=== PATIENT | female | born 2000 | race Caucasian/White ===

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

== ENCOUNTER 2023-02-19 10:11 | Observation (INO) | payer BC ==
--- NOTE | 2023-02-19 11:50 | ED ---
Chest Pain HPI - General Chief Complaint: Chest Pain Stated Complaint: chest pain Time Seen by Provider: 02/19/23 11:50 Source: patient, family, RN notes reviewed Mode of arrival: ambulatory Limitations: no limitations - History of Present Illness Initial Comments: patient is a 22-year-old female presented ER with chief complaint of chest pressure. Patient denies any known cardiac history. Patient is current chest pressure in the center of her chest for the past day. She states it does come and go. Nothing makes it better or worse. Patient states she was sitting in a chair when pain first started. Patient denies any shortness of breath, fevers, chills. - Related Data Allergies Allergy/AdvReac Type Severity Reaction Status Date / Time No Known Allergies Allergy Verified 02/19/23 10:39 Review of Systems ROS Statement: Those systems with pertinent positive or pertinent negative responses have been documented in the HPI. ROS Other: All systems not noted in ROS Statement are negative. EKG Findings - EKG Comments: EKG Findings:: EKG taken at 10:51 shows a normal sinus rhythm with [address] depression noted in inferior leads. Ventricular rate 86, NV interval 135, QRS duration 81, QT/QTC 368/411. Repeat EKG taken at 14:52 shows normal sinus rhythm with [address] depression noted in inferior leads. Ventricular rate 69, NV interval 140, QRS duration 85, QT/QTC 394/414. Past Medical History Past Medical History: No Reported History History of Any Multi-Drug Resistant Organisms: None Reported Past Surgical History: Unable to Obtain Past Psychological History: No Psychological Hx Reported Smoking Status: Never smoker Past Alcohol Use History: Rare Past Drug Use History: None Reported General Exam Limitations: no limitations General appearance: alert, in no apparent distress Eye exam: Present: normal appearance, PERRL, EOMI. Absent: scleral icterus, conjunctival injection, periorbital swelling Respiratory exam: Present: normal lung sounds bilaterally. Absent: respiratory distress, wheezes, rales, rhonchi, stridor Cardiovascular Exam: Present: regular rate, normal rhythm, normal heart sounds. Absent: systolic murmur, diastolic murmur, rubs, gallop, clicks Neurological exam: Present: alert, oriented X3, CN II-XII intact Psychiatric exam: Present: normal affect, normal mood Skin exam: Present: warm, dry, intact, normal color. Absent: rash Course Vital Signs 02/19/23 02/19/23 10:36 15:16 Temperature 98.3 F 98.3 F Pulse Rate 89 63 Respiratory 20 20 Rate Blood Pressure 141/86 116/79 O2 Sat by Pulse 100 100 Oximetry Chest Pain MDM - MDM Was pt. sent in by a medical professional or institution (, PA, COMMERCIAL ADMINISTRATOR, urgent care, hospital, or jail...) When possible be specific @ -No Did you speak to anyone other than the patient for history (EMS, parent, family, police, friend...)? What history was obtained from this source @ -[Mother Did you review nursing and triage notes (agree or disagree)? Why? @ -I reviewed and agree with nursing and triage notes Were old charts reviewed (outside hosp., previous admission, EMS record, old EKG, old radiological studies, urgent care reports/EKG's, jail records)? Report findings @ -No old charts were reviewed Differential Diagnosis (chest pain, altered mental status, abdominal pain women, abdominal pain men, vaginal bleeding, weakness, fever, dyspnea, syncope, headache, dizziness, GI bleed, back pain, seizure, CVA, palpatations, mental health, musculoskeletal)? @ -Differential Chest Pain: Stable Angina, Unstable Angina, STEMI, NSTEMI Aortic Dissection, Pneumothorax, Musculoskeletal, Esophageal Spasm GERD, Cholecystitis, Pancreatitis, Zoster, this is not meant to be an all-inclusive list. cable EKG interpreted by me (3pts min.). @ -As above X-rays interpreted by me (1pt min.). @ -Chest x-ray shows no acute cardiopulmonary process. CT interpreted by me (1pt min.). @ -None done U/S interpreted by me (1pt. min.). @ -None done What testing was considered but not performed or refused? (CT, X-rays, U/S, labs)? Why? @ -None What meds were considered but not given or refused? Why? @ -None Did you discuss the management of the patient with other professionals (professionals i.e. , PA, COMMERCIAL ADMINISTRATOR, lab, RT, psych nurse, social sciences department chair, screen printing inspector, teacher, revenue officer, community case manager)? Give summary @ -Yes, I discussed this case with Dr. Dubon from cardiology. Dr. Dubon came down and evaluated the patient and advised on observation admission for echo and further workup. I also spoke with Joseph from the [facility], [facility] for admission. Was smoking cessation discussed for >3mins.? @ -No Was critical care preformed (if so, how long)? @ -No Were there social determinants of health that impacted care today? How? (Homelessness, low income, unemployed, alcoholism, drug addiction, transportation, low edu. Level, literacy, decrease access to med. care, fpc, rehab)? @ -No Was there de-escalation of care discussed even if they declined (Discuss DNR or withdrawal of care, Hospice)? DNR status @ -No What co-morbidities impacted this encounter? (DM, HTN, Smoking, COPD, CAD, Cancer, CVA, ARF, Chemo, Hep., AIDS, mental health diagnosis, sleep apnea, morbid obesity)? @ -None Was patient admitted / discharged? Hospital course, mention meds given and route, prescriptions, significant lab abnormalities, going to OR and other pertinent info. @ -Admitted. Patient's vitals remained stable upon examination. Patient continued having this chest pressure sensation. Chest x-ray shows no acute cardiopulmonary process. Troponin was negative, d-dimer was negative, there was mild transaminitis. EKGs showed ST depression in leads II, III and aVF. I consulted Dr. Dubon from cardiology who came down and evaluated the patient at bedside. He stated that an observation admission for further workup and echocardiogram is appropriate. Patient will be admitted with cardiology consulted. Patient expressed understanding and agreement with care plan. Undiagnosed new problem with uncertain prognosis? @ -No Drug Therapy requiring intensive monitoring for toxicity (Heparin, Nitro, I nsulin, Cardizem)? @ -No Were any procedures done? @ -No Diagnosis/symptom? @ -Angina/abnormal EKG Acute, or Chronic, or Acute on Chronic? @ -Acute Uncomplicated (without systemic symptoms) or Complicated (systemic symptoms)? @ -Uncomplicated Side effects of treatment? @ -No Exacerbation, Progression, or Severe Exacerbation? @ -No Poses a threat to life or bodily function? How? (Chest pain, [place], [place], pneumonia, PE, COPD, DKA, ARF, appy, cholecystitis, CVA, Diverticulitis, Homicidal, Suicidal, threat to staff... and all critical care pts) @ -No Disposition Clinical Impression: Chest pain, Abnormal EKG Disposition: ADMITTED IP TO THIS HOSP Condition: Stable Referrals: Stephanie Carney MD [Primary Care Provider] - 1-2 days Time of Disposition: 15:55
--- NOTE | 2023-02-19 12:05 | XR ---
EXAMINATION TYPE: XR chest 2V DATE OF EXAM: 02/19/2023 COMPARISON: NONE HISTORY: Chest pain TECHNIQUE: Frontal and lateral views of the chest are obtained. FINDINGS: There is no focal air space opacity. No evidence for pneumothorax. No pleural effusion. The cardiac silhouette size is within normal limits. The osseous structures are grossly intact. IMPRESSION: 1. No acute cardiopulmonary process.
[2023-02-19 12:56] LABS: HCT 41.6 % (34.0-46.0); HGB 14.3 gm/dL (11.4-16.0); MCH 32.1 pg (25.0-35.0); MCHC 34.3 g/dL (31.0-37.0); MCV 93.7 fL (80.0-100.0); Mean Platelet Volume 7.4; Platelet Count 257 k/uL (150-450); RBC 4.44 m/uL (3.80-5.40); RDW 12.3 % (11.5-15.5); WBC 6.9 k/uL (3.8-10.6)
[2023-02-19 13:26] LABS: ALT 54 U/L (4-34); AST 46 U/L (14-36); African American GFR (CKD) >90 (>60 ml/min/1.73 sqM); Albumin 4.8 g/dL (3.5-5.0); Alkaline Phosphatase 65 U/L (38-126); Anion Gap 13 mmol/L; Blood Urea Nitrogen 7 mg/dL (7-17); Calcium 10.2 mg/dL (8.4-10.2); Carbon Dioxide 22 mmol/L (22-30); Chloride 106 mmol/L (98-107); Glucose 115 mg/dL (74-99); Non-African American GFR(CKD) >90 (>60 ml/min/1.73 sqM); Potassium 3.7 mmol/L (3.5-5.1); Sodium 141 mmol/L (137-145); Total Bilirubin 1.2 mg/dL (0.2-1.3); Total Protein 7.9 g/dL (6.3-8.2)
[2023-02-19] MEDS ORDERED: ACETAMINOPHEN TAB 325 MG TAB PO PRN (15:43)
[2023-02-19] MEDS ORDERED: NALOXONE 0.4 MG/ML 1 ML VIAL IV PRN (15:43)
[2023-02-19] MEDS ORDERED: NALOXONE 0.4 MG/ML 1 ML VIAL IVP PRN (15:44)
--- NOTE | 2023-02-19 16:26 | P.CRDCN ---
History of Present Illness Consult date: 02/19/23 Chief complaint: Chest discomfort History of present illness: The patient is a 22-year-old female patient who presented to the emergency department with her mother complaining of chest discomfort. It started yesterday. She describes discomfort as a pressure in the middle of the chest was no radiation to the arms or neck or shoulders or back. No associated symptoms of shortness of breath or dizziness or lightheadedness or any feeling of heart racing or fluttering or presyncope or syncope. The discomfort is clearly not exertional related. It is of variable duration but most of the time loss for few seconds only. No prior cardiac or medical history. She underwent further workup including a chest x-ray came in to be unremarkable and the first set of troponin came in to be unremarkable. Currently she is chest pain-free. The EKG showed sinus mechanism with ST changes in the inferolateral leads. No prior or old EKG to compare to this EKG from today. An echo is in process to be done. The examination is remarkable for regular rhythm with a clear breathing sounds bilaterally and no lower extremities edema noted. The patient doesn't have any family history of cardiovascular disease. The patient does not smoke. Assessment Atypical chest discomfort Abnormal EKG Plan Rule out any acute coronary event. Obtain serial cardiac enzymes. Rule out coronary anomalies probably as an outpatient by obtaining coronary CTA Obtain an echocardiogram was Doppler Monitor the patient overnight Follow-up with the patient Past Medical History Past Medical History: No Reported History History of Any Multi-Drug Resistant Organisms: None Reported Past Surgical History: Unable to Obtain Past Psychological History: No Psychological Hx Reported Smoking Status: Never smoker Past Alcohol Use History: Rare Past Drug Use History: None Reported Medications and Allergies Home Medications Medication Instructions Recorded Confirmed Type No Known Home Medications 02/19/23 02/19/23 History Allergies Allergy/AdvReac Type Severity Reaction Status Date / Time No Known Allergies Allergy Verified 02/19/23 16:10 Physical Exam Vitals: Vital Signs Temp Pulse Resp BP Pulse Ox 02/19/23 16:00 66 18 142/95 02/19/23 15:58 68 02/19/23 15:16 98.3 F 63 20 116/79 100 02/19/23 10:36 98.3 F 89 20 141/86 100 Intake and Output 02/19/23 02/19/23 02/19/23 06:59 14:59 22:59 Other: Weight 72.575 kg Results 02/19/23 12:29 02/19/23 12:29 Cardiac Enzymes 02/19/23 02/19/23 Range/Units 12: 12:29 AST 46 H (14-36) U/L Troponin I <0.012 (0.000-0.034) ng/mL CBC 02/19/23 Range/Units 12:29 WBC 6.9 (3.8-10.6) k/uL RBC 4.44 (3.80-5.40) m/uL Hgb 14.3 (11.4-16.0) gm/dL Hct 41.6 (34.0-46.0) % Plt Count 257 (150-450) k/uL Comprehensive Metabolic Panel 02/19/23 Range/Units 12:29 Sodium 141 (137-145) mmol/L Potassium 3.7 (3.5-5.1) mmol/L Chloride 106 (98-107) mmol/L Carbon Dioxide 22 (22-30) mmol/L BUN 7 (7-17) mg/dL Creatinine 0.86 (0.52-1.04) mg/dL Glucose 115 H (74-99) mg/dL Calcium 10.2 (8.4-10.2) mg/dL AST 46 H (14-36) U/L ALT 54 H (4-34) U/L Alkaline Phosphatase 65 (38-126) U/L Total Protein 7.9 (6.3-8.2) g/dL Albumin 4.8 (3.5-5.0) g/dL Current Medications Generic Name Dose Route Start Last Admin Trade Name Freq PRN Reason Stop Dose Admin Acetaminophen 650 mg 02/19/23 15:43 Acetaminophen Tab 325 Mg Tab PO Q6HR PRN Mild Pain or Fever > 100.5 Aspirin 81 mg 02/20/23 09:00 Aspirin 81 Mg PO DAILY BRANT Naloxone HCl 0.2 mg 02/19/23 15:44 Naloxone 0.4 Mg/Ml 1 Ml Vial IVP Q2M PRN Opioid Reversal Intake and Output 02/19/23 02/19/23 02/19/23 06:59 14:59 22:59 Other: Weight 72.575 kg Patient Weight 02/20/23 06:59 Weight 72.575 kg 02/19/23 12:29 02/19/23 12:29
--- NOTE | 2023-02-19 17:34 | P.HPIM ---
History of Present Illness H&P Date: 02/19/23 History of Presenting Illness: Patient is a very pleasant 22-year-old female with no reported past medical history. She presented to the emergency department secondary to concerns of midsternal chest pressure. Patient reports she began experiencing these symptoms yesterday and they seem to come on at rest. She states this pressure remains to midsternal chest and does not radiate. She reports taking a deep breath in does make it feel a little bit better but otherwise nothing seems to make it better or worse. She denies having any other complaints including fevers, chills, headache, lightheadedness, dizziness, palpitations, shortness of breath, cough or congestion, abdominal pain, nausea, vomiting, or experiencing any numbness/tingling/weakness/swelling in her extremities. Patient does report she is under stress as she is in school at [employer] in the [employer] program. She denies any cardiac history and both she and her father at bedside deny having any family history of sudden cardiac before the age of 50. Patient denies smoking or vaping and denies any drug use. She underwent full evaluation in the emergency department. Vital signs upon arrival stable blood pressure 141/86, heart rate 89, respiratory rate 20, temperature 98.3F, SpO2 100% on room air. Chest x-ray was completed negative for acute cardiopulmonary process. EKG was completed showing normal sinus rhythm at 86 bpm however patient was found to have inferior ST depression in leads 2, 3, and aVF. No previous EKGs were available for comparison. Labs completed and reviewed. CBC unremarkable. D- dimer normal findings is 0.21. BMP also unremarkable. Liver profile showing slightly elevated AST of 46 and ALT 54. Patient was admitted under our services with consultation to cardiology. Review of systems: Pertinent positives and negatives as discussed in HPI, a complete review of systems was performed and all other systems are negative. Physical exam: Vital signs reviewed and stable. General: Nontoxic, no distress and appears stated age. Derm: Skin warm and dry, normal coloration for ethnicity. Head: Atraumatic, normocephalic and symmetric. Eyes: EOMs intact, no lid lag, and anicteric sclera Mouth: no lip lesions, mucus membranes moist Cardiovascular: regular rate and rhythm with normal S1S2, no murmur, positive posterior tibial pulses bilaterally, and cap refill < 2 seconds. Lungs: Respirations even, regular, and unlabored on room air. Lungs CTA bilater ally, no rhonchi, no rales, no wheezing, and no accessory muscle usage. Abdominal: soft, nontender to palpation, no guarding, no appreciable organomegaly Ext: ROM intact. No gross muscle atrophy, no edema, no contractures Neuro: Speech clear, face symmetrical and CN II-XII grossly intact with no noted focal neuro deficits Psych: Alert and oriented to person, place, time, and situation. Appropriate and pleasant affect. Assessment and Plan of Care: Atypical Chest pain/pressure, rule out acute coronary event Abnormal EKG findings, inferior ST depression -Cardiology consulted, appreciate further recommendations -Telemetry monitoring -Trend troponins -Cardiac diet, NPO at midnight -Aspirin, atorvastatin, and metoprolol -Lipid profile with a.m. labs. -Echocardiogram -Order placed for urine hCG and urine drug screen. Data and imaging reviewed: -Vital signs upon arrival stable blood pressure 141/86, heart rate 89, respiratory rate 20, temperature 98.3F, SpO2 100% on room air. -Chest x-ray was completed negative for acute cardiopulmonary process. -EKG was completed showing normal sinus rhythm at 86 bpm however patient was found to have inferior ST depression in leads 2, 3, and aVF. No previous EKGs were available for comparison. -Labs completed and reviewed. CBC unremarkable. D-dimer normal findings is 0.21. BMP also unremarkable. Liver profile showing slightly elevated AST of 46 and ALT 54. The patient is admitted with an anticipated less than 2 midnight stay for evaluation of chest pain CODE STATUS: Full code DVT prophylaxis: SCDs Anticipated discharge date: likely tomorrow Anticipated discharge place: home Patient was seen independently by Nurse Practitioner. This document was prepared using [employer] dictation software. Please allow for errors in piano case maker while rare they do occur. Joseph Michael NP rendered care for this patient independently, reviewed the findings and plan as documented in the note above. I did not physically speak with or examine the patient on this date. Past Medical History Past Medical History: No Reported History History of Any Multi-Drug Resistant Organisms: None Reported Past Surgical History: Unable to Obtain Past Psychological History: No Psychological Hx Reported Smoking Status: Never smoker Past Alcohol Use History: Rare Past Drug Use History: None Reported Medications and Allergies Home Medications Medication Instructions Recorded Confirmed Type No Known Home Medications 02/19/23 02/19/23 History Allergies Allergy/AdvReac Type Severity Reaction Status Date / Time No Known Allergies Allergy Verified 02/19/23 16:10 Physical Exam Vitals: Vital Signs Temp Pulse Resp BP Pulse Ox 02/19/23 15:16 98.3 F 63 20 116/79 100 02/19/23 10:36 98.3 F 89 20 141/86 100 Intake and Output 02/19/23 02/19/23 02/19/23 06:59 14:59 22:59 Other: Weight 72.575 kg Results CBC & Chem 7: 02/21/23 06:10 02/21/23 06:10 Labs: Abnormal Lab Results - Last 24 Hours (Table) 02/19/23 Range/Units 12:29 Glucose 115 H (74-99) mg/dL AST 46 H (14-36) U/L ALT 54 H (4-34) U/L
[2023-02-19 18:18] LABS: Amphetamine Screen,Urine Not Detected (NotDetected); Barbiturate Screen,Urine Not Detected (NotDetected); Benzodiazepines Screen,Urine Not Detected (NotDetected); Cocaine Screen,Urine Not Detected (NotDetected); Methadone Screen, Urine Not Detected (NotDetected); Opiate Screen,Urine Not Detected (NotDetected); Oxycodone Screen, Urine Not Detected (NotDetected); Phencyclidine Screen,Urine Not Detected (NotDetected); Tricyclic Antidepressant,Urine Not Detected (NotDetected); Urn Cannabinoid Scrn Not Detected (NotDetected)
[2023-02-20 08:07] VITALS: RESP 16
[2023-02-20] MEDS: ASPIRIN 81 MG PO SCH (08:22)
--- NOTE | 2023-02-20 13:19 | P.PN ---
Subjective Progress Note Date: 02/20/23 Principal diagnosis: Chest pain The patient is a 22-year-old female patient who presented to the emergency department with her mother complaining of chest discomfort. It started yesterday. She describes discomfort as a pressure in the middle of the chest was no radiation to the arms or neck or shoulders or back. No associated symptoms of shortness of breath or dizziness or lightheadedness or any feeling of heart racing or fluttering or presyncope or syncope. The discomfort is clearly not exertional related. It is of variable duration but most of the time loss for few seconds only. No prior cardiac or medical history. She underwent further workup including a chest x-ray came in to be unremarkable and the first set of troponin came in to be unremarkable. Currently she is chest pain-free. The EKG showed sinus mechanism with ST changes in the inferolateral leads. No prior or old EKG to compare to this EKG from today. An echo is in process to be done. The examination is remarkable for regular rhythm with a clear breathing sounds bilaterally and no lower extremities edema noted. The patient doesn't have any family history of cardiovascular disease. The patient does not smoke. 02/16/2023 The patient was seen and evaluated [place] she continues to have intermittent episodes of chest discomfort. Beside that she has been going into narrow complex tachycardia concerning for atrial tachycardia versus SVT. I overnight and obtain an exercise treadmill stress test to see if we can induce any arrhythmia with exercise. The main concern for her behind the chest discomfort is coronary anomalies. Otherwise hemodynamically she is stable. The echo showed normal LV systolic function with mild mitral valve prolapse. We are going to obtain a TSH and free T4. The examination is unremarkable Assessment Atypical chest discomfort Cardiac arrhythmia with atrial tachycardia versus SVT Plan Obtain an exercise treadmill stress test Obtain TSH and free T4 Follow-up with the patient Objective - Vital Signs Vital signs: Vital Signs Temp 98.0 F 02/20/23 07:00 Pulse 66 02/20/23 08:00 Resp 16 02/20/23 08:00 BP 117/74 02/20/23 07:00 Pulse Ox 98 02/20/23 07:00 FiO2 Intake & Output 02/19/23 02/20/23 02/20/23 18:59 06:59 18:59 Intake Total 118 0 Balance 118 0 Weight 72.575 kg Intake: Oral 118 0 Other: Voiding Method Toilet Toilet # Voids 2 - Labs CBC & Chem 7: 02/19/23 12:29 02/19/23 12:29 Labs: Abnormal Lab Results - Last 24 Hours (Table) 02/19/23 Range/Units 12:29 Glucose 115 H (74-99) mg/dL AST 46 H (14-36) U/L ALT 54 H (4-34) U/L
--- NOTE | 2023-02-20 17:17 | P.PN ---
Subjective Progress Note Date: 02/20/23 History of Presenting Illness: Patient is a very pleasant 22-year-old female with no reported past medical history. She presented to the emergency department secondary to concerns of m idsternal chest pressure. Patient reports she began experiencing these symptoms yesterday and they seem to come on at rest. She states this pressure remains to midsternal chest and does not radiate. She reports taking a deep breath in does make it feel a little bit better but otherwise nothing seems to make it better or worse. She denies having any other complaints including fevers, chills, he adache, lightheadedness, dizziness, palpitations, shortness of breath, cough or congestion, abdominal pain, nausea, vomiting, or experiencing any numbness/tingling/weakness/swelling in her extremities. Patient does report she is under stress as she is in school at [employer] in the [employer] program. She denies any cardiac history and both she and her father at bedside deny having any family history of sudden cardiac before the age of 50. Patient denies smoking or vaping and denies any drug use. She underwent full evaluation in the emergency department. Vital signs upon arrival stable blood pressure 141/86, heart rate 89, respiratory rate 20, temperature 98.3F, SpO2 100% on room air. Chest x-ray was completed negative for acute cardiopulmonary process. EKG was completed showing normal sinus rhythm at 86 bpm however patient was found to have inferior ST depression in leads 2, 3, and aVF. No previous EKGs were available for comparison. Labs completed and reviewed. CBC unremarkable. D- dimer normal findings is 0.21. BMP also unremarkable. Liver profile showing slightly elevated AST of 46 and ALT 54. Patient was admitted under our services with consultation to cardiology. Urine drug screen negative. Urine hCG negative for . Physical exam: Patient continues to report intermittent pain to midsternal chest and has reportedly been having intermittent episodes of tachycardia throughout stay. Vital signs reviewed and stable. General: Nontoxic, no distress and appears stated age. Derm: Skin warm and dry, normal coloration for ethnicity. Head: Atraumatic, normocephalic and symmetric. Eyes: EOMs intact, no lid lag, and anicteric sclera Mouth: no lip lesions, mucus membranes moist Cardiovascular: regular rate and rhythm with normal S1S2, no murmur, positive posterior tibial pulses bilaterally, and cap refill < 2 seconds. Lungs: Respirations even, regular, and unlabored on room air. Lungs CTA bilaterally, no rhonchi, no rales, no wheezing, and no accessory muscle usage. Abdominal: soft, nontender to palpation, no guarding, no appreciable o rganomegaly Ext: ROM intact. No gross muscle atrophy, no edema, no contractures Neuro: Speech clear, face symmetrical and CN II-XII grossly intact with no noted focal neuro deficits Psych: Alert and oriented to person, place, time, and situation. Appropriate and pleasant affect. Assessment and Plan of Care: Atypical Chest pain/pressure, rule out acute coronary event Abnormal EKG findings, inferior ST depression Cardiac arrhythmia, atrial tachycardia versus SVT -Cardiology consulted, discussed plan of care with Dr. Everett. Patient has been coming into intermittent episodes of tachycardia and continues to have intermittent chest pain. Dr. Dubon planning to take patient for echo stress tomorrow morning. -Patient to remain on continuous Telemetry monitoring -Troponins trended and were all negative at less than 0.0123 draws. -Cardiac diet, NPO at midnight -Echocardiogram ablated and pending results. Data and imaging reviewed: -Vital signs reviewed and stable. Blood pressure 117/74, heart rate 66, respiratory rate 16, temp 98.0F, SpO2 90% on room air. CODE STATUS: Full code DVT prophylaxis: SCDs Anticipated discharge date: likely tomorrow Anticipated discharge place: home Patient was seen independently by Nurse Practitioner. This document was prepared using [employer] dictation software. Please allow for errors in engine dynamometer tester while rare they do occur. Joseph Michael NP rendered care for this patient independently, reviewed the findings and plan as documented in the note above. I did not physically speak with or examine the patient on this date. Objective - Vital Signs Vital signs: Vital Signs Temp 98.0 F 02/20/23 07:00 Pulse 66 02/20/23 07:00 Resp 16 02/20/23 07:00 BP 117/74 02/20/23 07:00 Pulse Ox 98 02/20/23 07:00 FiO2 Intake & Output 02/19/23 02/20/23 02/20/23 18:59 06:59 18:59 Intake Total 118 Balance 118 Weight 72.575 kg Intake: Oral 118 Other: Voiding Method Toilet # Voids 2 - Labs CBC & Chem 7: 02/21/23 06:10 02/21/23 06:10 Labs: Abnormal Lab Results - Last 24 Hours (Table) 02/19/23 Range/Units 12:29 Glucose 115 H (74-99) mg/dL AST 46 H (14-36) U/L ALT 54 H (4-34) U/L
[2023-02-21 08:25] VITALS: BP 106/68; PULSE 54; TEMP 97.7
[2023-02-21] MEDS: ASPIRIN 81 MG PO SCH (08:53)
[2023-02-21 10:57] LABS: HCT 40.2 % (37.2-46.3); HGB 13.6 g/dL (12.0-15.0); MCH 31.9 pg (27.0-32.0); MCHC 33.8 g/dL (32.0-37.0); MCV 94.1 FL (80.0-97.0); Mean Platelet Volume 9.9 FL (9.5-12.2); NRBC Per 100 WBC 0 X 10*3/uL (0.00-0.01); Platelet Count 252 X 10*3/uL (140-440); RBC 4.27 X 10*6/uL (4.10-5.20); RDW 12.8 % (11.5-14.5); WBC 4.57 X 10*3/uL (4.50-10.00)
[2023-02-21 10:58] LABS: ALT 47 U/L (8-44); AST 30 U/L (13-35); Albumin 4.3 g/dL (3.8-4.9); Albumin/Globulin Ratio 1.95 Ratio (1.60-3.17); Alkaline Phosphatase 55 U/L (41-126); BUN/Creat Ratio 8.33 Ratio (12.00-20.00); Blood Urea Nitrogen 7.5 mg/dL (9.0-27.0); Calcium 9.8 mg/dL (8.7-10.3); Carbon Dioxide 24.7 mmol/L (21.6-31.8); Chloride 107 mmol/L (96-109); Globulin 2.2 g/dL (1.6-3.3); Glucose 89 mg/dL (70-110); Magnesium 2.1 mg/dL (1.5-2.4); Potassium 4.4 mmol/L (3.5-5.5); Sodium 142 mmol/L (135-145); Total Bilirubin 0.6 mg/dL (0.3-1.2); Total Protein 6.5 g/dL (6.2-8.2)
--- NOTE | 2023-02-21 11:07 | P.PN ---
Subjective Progress Note Date: 02/21/23 Chest pain The patient is a 22-year-old female patient who presented to the emergency department with her mother complaining of chest discomfort. It started yesterday. She describes discomfort as a pressure in the middle of the chest was no radiation to the arms or neck or shoulders or back. No associated symptoms of shortness of breath or dizziness or lightheadedness or any feeling of heart racing or fluttering or presyncope or syncope. The discomfort is clearly not exertional related. It is of variable duration but most of the time loss for few seconds only. No prior cardiac or medical history. She underwent further workup including a chest x-ray came in to be unremarkable and the first set of troponin came in to be unremarkable. Currently she is chest pain-free. The EKG showed sinus mechanism with ST changes in the inferolateral leads. No prior or old EKG to compare to this EKG from today. An echo is in process to be done. The examination is remarkable for regular rhythm with a clear breathing sounds bilaterally and no lower extremities edema noted. The patient doesn't have any family history of cardiovascular disease. The patient does not smoke. 02/20/2023 The patient was seen and evaluated this morning beach she continues to have intermittent episodes of chest discomfort. Beside that she has been going into narrow complex tachycardia concerning for atrial tachycardia versus SVT. I overnight and obtain an exercise treadmill stress test to see if we can induce any arrhythmia with exercise. The main concern for her behind the chest discomfort is coronary anomalies. Otherwise hemodynamically she is stable. The echo showed normal LV systolic function with mild mitral valve prolapse. We are going to obtain a TSH and free T4. The examination is unremarkable 02/21 Patient is seen today in follow-up. She denies having any chest pain no chest discomfort. She denies having any palpitations. TSH normal at 1.3. Patient is scheduled for a stress echocardiogram today and echocardiogram report is pending. Event monitor will be ordered. Assessment Atypical chest discomfort Cardiac arrhythmia with atrial tachycardia versus SVT Plan Obtain an exercise treadmill stress test If stress test is unremarkable, patient is cleared for discharge and may follow- up in the office in [address] Dubon. Event monitor prior to discharge. Nurse practitioner note has been reviewed, I agree with the documented findings and plan of care. Patient was seen and examined. Objective - Vital Signs Vital signs: Vital Signs Temp 97.7 F 02/21/23 07:00 Pulse 54 L 02/21/23 07:00 Resp 16 02/21/23 07:00 BP 106/68 02/21/23 07:00 Pulse Ox 98 02/21/23 07:00 FiO2 Intake & Output 02/20/23 02/21/23 02/21/23 18:59 06:59 18:59 Intake Total 118 Output Total 2 Balance 118 -2 Intake: Oral 118 Output: Stool 2 Other: Voiding Method Toilet Toilet # Voids 3 - Labs CBC & Chem 7: 02/21/23 06:10 02/21/23 06:10
--- NOTE | 2023-02-21 11:45 | CA ---
Stress Echo Report Ofe Alcantara Age: 22 Gender: F : 2000 Exam Date: 02/21/2023 10:15 Exam Location: [place] [facility] Ht (in): 71 Wt (lb): 160 Ordering Physician: Og Dubon MD ([id number]) Referring Physician: YFN,, Learning Analyst: Edilma Souza RDCS Technologist Procedure CPT: Indication: CP ICD-9 Codes: Rhythm: Patient History: CHEST PAIN, DIFFICULTY IN BREATHING Cardiac Medications: Medications in past 24 hours: Contrast: Stress Results Protocol: Bo Total dose(mL): Exercise Duration (min:sec): 9:[address] Depression (mm): Angina Score: Rajan Score: METS: 10.5 Resting HR: 112 Resting BP: 113 / 78 Peak HR: 187 Peak BP: 159 / 68 Max Predicted HR: 198 94 % Max Predicted HR Target HR: 168 Double Product: [id number] Stress Summary: BP Response: Reason for Termination: MAX EXERTION/TARGET HR Cardiac Symptoms: ECG Analysis Resting ECG: Stress ECG: Arrhythmia: Echo Analysis Resting Echo: Peak Echo Analysis: MEASUREMENTS (Male/Female) Normal Values CONCLUSIONS Patient underwent exercise stress echo with a Bo protocol treadmill stress test. Patient exercised into Stage 3 for a total of 9 minutes reaching a total of 10.5 METS. Patient's maximum heart rate was 187 which represented 94 % age-predicted maximum heart rate. Stress EKG portion: At baseline patient's EKG showed normal sinus rhythm, normal axis, no significant ST or T wave abnormalities. At peak exercise, EKG showed no significant change from baseline. Stress echo portion: 2-D echocardiogram was performed in the parasternal long, personal short, apical 2 and apical four-chamber views at rest, peak exercise and in recovery. At baseline, echocardiogram showed left ventricular ejection fraction 55 % without wall motion abnormalities. With peak exercise, echocardiogram shows improvement in left ventricular ejection fraction, increase contractility, decrease in left ventricular end systolic dimension without wall motion abnormalities consistent with a normal response to exercise. Conclusions: 1. Normal EKG and echo response to exercise without evidence of inducible ischemia. 2. Good exercise capacity. Dr. Leoncio Nickerson DO (Electronically Signed) Final Date: 21 February 2023 11:44
--- NOTE | 2023-02-21 13:32 | P.DS ---
Providers Date of admission: 02/19/23 15:30 Expected date of discharge: 02/21/23 Attending physician: Margarita Brooks MD Consults: 02/19/23 15:43 Consult Physician Stat Consulting Provider: Og Dubon Consult Reason/Comments: chest pain Do you want consulting provider notified?: Yes Primary care physician: [facility] Course: Discharge Diagnosis: Atypical Chest pain/pressure, acute coronary event ruled out. Abnormal EKG findings, inferior ST depression. Cardiac arrhythmia, atrial tachycardia versus SVT. Patient discharged home with event monitor in place. To follow up with Dr. Dubon cutter operator asbestos shingle's office in 4 weeks. Hospital Course: Patient is a very pleasant 22-year-old female with no reported past medical history. She presented to the emergency department secondary to concerns of midsternal chest pressure. Patient reports she began experiencing these symptoms yesterday and they seem to come on at rest. She states this pressure remains to midsternal chest and does not radiate. She reports taking a deep breath in does make it feel a little bit better but otherwise nothing seems to make it better or worse. She denies having any other complaints including fevers, chills, headache, lightheadedness, dizziness, palpitations, shortness of breath, cough or congestion, abdominal pain, nausea, vomiting, or experiencing any numbness/tingling/weakness/swelling in her extremities. Patient does report she is under stress as she is in school at [employer] in the [employer] program. She denies any cardiac history and both she and her father at bedside deny having any family history of sudden cardiac before the age of 50. Patient denies smoking or vaping and denies any drug use. She underwent full evaluation in the emergency department. Vital signs upon arrival stable blood pressure 141/86, heart rate 89, respiratory rate 20, temperature 98.3F, SpO2 100% on room air. Chest x-ray was completed negative for acute cardiopulmonary process. EKG was completed showing normal sinus rhythm at 86 bpm however patient was found to have inferior ST depression in leads 2, 3, and aVF. No previous EKGs were available for comparison. Labs completed and reviewed. CBC unremarkable. D- dimer normal findings is 0.21. BMP also unremarkable. Liver profile showing slightly elevated AST of 46 and ALT 54. Patient was admitted under our services with consultation to cardiology. Urine drug screen negative. Urine hCG negative for . Patient was noted on telemetry to have runs of atrial tachycardia versus SVT. Echocardiogram completed, cardiology evaluated however report is not available for review at this time. Cardiology recommending patient undergo stress echo.Stress echo completed showing good exercise capacity with normal EKG and echo response to exercise without evidence of inducible ischemia. Event monitor placed. Patient is medically stable for discharge at this time. Vital signs as follows blood pressure 106/68, heart rate 54, respiratory rate 16, temp 97.7F, SpO2 of 98% on room air. Physical exam: Vital signs reviewed and stable. General: Nontoxic, no distress and appears stated age. Derm: Skin warm and dry, normal coloration for ethnicity. Head: Atraumatic, normocephalic and symmetric. Eyes: EOMs intact, no lid lag, and anicteric sclera Mouth: no lip lesions, mucus membranes moist Cardiovascular: regular rate and rhythm with normal S1S2, no murmur, positive posterior tibial pulses bilaterally, and cap refill < 2 seconds. Lungs: Respirations even, regular, and unlabored on room air. Lungs CTA bilaterally, no rhonchi, no rales, no wheezing, and no accessory muscle usage. Abdominal: soft, nontender to palpation, no guarding, no appreciable organomegaly Ext: ROM intact. No gross muscle atrophy, no edema, no contractures Neuro: Speech clear, face symmetrical and CN II-XII grossly intact with no noted focal neuro deficits Psych: Alert and oriented to person, place, time, and situation. Appropriate and pleasant affect. A total of 35 minutes of time were spent preparing this complex discharge summary. Pt was discharged on 02/21/23 at 1:22 PM. Patient was seen independently by Nurse Practitioner. This document was prepared using [employer] dictation software. Please allow for errors in manager acquisition while rare they do occur. Joseph Michael NP rendered care for this patient independently, reviewed the findings and plan as documented in the note above. I did not physically speak with or examine the patient on this date. Patient Condition at Discharge: Stable Plan - Discharge Summary Discharge Rx Participant: No New Discharge Prescriptions: No Action No Known Home Medications Discharge Medication List No Known Home Medications 02/19/23 [History] Follow up Appointment(s)/Referral(s): Stephanie Carney MD [Primary Care Provider] - 1-2 days Og Dubon MD [STAFF PHYSICIAN] - 4 Weeks (Office will call patient with date and time of appointment) Patient Instructions/Handouts: Chest Pain (DC) Activity/Diet/Wound Care/Special Instructions: Event monitor placed 02/21/23 - wear for 3 weeks Activity: As tolerated. Take breaks as needed. Diet: Heart healthy and carb consistent diet. Special Instructions: Thank you for allowing us to participate in your care, it was truly a pleasure having you for our patient!!! Discharge Disposition: HOME SELF-CARE
--- NOTE | 2023-02-21 15:13 | CA ---
Transthoracic Echo Report Name: Ofe Alcantara Age: 22 Gender: F : 2000 Exam Date: 02/19/2023 16:36 Exam Location: [place] [facility] Ht (in): 71 Wt (lb): 160 Ordering Physician: Lisbeth Grider Attending/Referring Phys: Electrical Manufacturing Technician Edilma Souza RDCS Procedure CPT: Indications: Chest Pain Cardiac Hx: Technical Quality: Good Contrast 1: Total Dose (mL): Contrast 2: Total Dose (mL): MEASUREMENTS (Male / Female) Normal Values 2D ECHO LV Diastolic Diameter PLAX 4.3 cm 4.2 - 5.9 / 3.9 - 5.3 cm LV Systolic Diameter PLAX 2.8 cm IVS Diastolic Thickness 0.8 cm 0.6 - 1.0 / 0.6 - 0.9 cm LVPW Diastolic Thickness 0.8 cm 0.6 - 1.0 / 0.6 - 0.9 cm LV Relative Wall Thickness 0.4 RV Internal Dim ED PLAX 2.6 cm LA Systolic Diameter LX 2.6 cm 3.0 - 4.0 / 2.7 - 3.8 cm LV Diastolic Volume MOD 4C 90.8 cm??? LV Systolic Volume MOD 4C 40.0 cm??? LV Ejection Fraction MOD 4C 55.9 % LV Cardiac Index MOD 4C 1757.8 cm???/min???m??? LV Diastolic Length 4C 8.6 cm LV Systolic Length 4C 6.9 cm LV Diastolic Volume MOD 2C 113.2 cm??? LV Systolic Volume MOD 2C 34.8 cm??? LV Ejection Fraction MOD 2C 69.2 % LV Cardiac Index MOD 2C 2716.1 cm???/min???m??? LV Diastolic Length 2C 8.6 cm LV Systolic Length 2C 6.5 cm LA Volume 35.0 cm??? 18 - 58 / 22 - 52 cm??? LA Volume Index 18.4 cm???/m??? 16 - 28 cm???/m??? M-MODE Aortic Root Diameter MM 2.8 cm MV E Point Septal Separation 0.4 cm AV Cusp Separation MM 2.2 cm DOPPLER AV Peak Velocity 156.0 cm/s AV Peak Gradient 9.7 mmHg MV Area PHT 3.6 cm??? Mitral E Point Velocity 91.7 cm/s Mitral A Point Velocity 52.4 cm/s Mitral E to A Ratio 1.8 MV Deceleration Time 210.3 ms MV E' Velocity 15.9 cm/s Mitral E to MV E' Ratio 5.8 FINDINGS Left Ventricle Left ventricular ejection fraction is estimated at 55 %. Left ventricular cavity size normal. Left ventricular wall thickness normal. Right Ventricle Normal right ventricular size. Unable to estimate the right ventricular systolic pressure. Right Atrium Normal right atrial size. Left Atrium Normal left atrial size. Mitral Valve Structurally normal mitral valve. No mitral stenosis, regurgitation or prolapse. Aortic Valve Trileaflet aortic valve. No aortic valve stenosis or regurgitation. Tricuspid Valve Structurally normal tricuspid valve. Trace tricuspid regurgitation. Pulmonic Valve Structurally normal pulmonic valve. Trace pulmonic regurgitation. Pericardium No pericardial effusion. Aorta Normal size aortic root and proximal ascending aorta. CONCLUSIONS Left ventricular ejection fraction 55% No mitral regurgitation Trace tricuspid regurgitation Previewed by: Dr. Leoncio Nickerson DO (Electronically Signed) Final Date: 21 February 2023 15:12
== END 2023-02-21 14:50 | disposition home or self-care (01) ==
LOC: EC 10:11 → 6NMEDSUR 15:30
PROVIDERS: ADMIT Internal Medicine; ATTEND Internal Medicine
DX: R07.89 Other chest pain (principal); I49.9 Cardiac arrhythmia, unspecified; I34.1 Nonrheumatic mitral (valve) prolapse; R94.31 Abnormal electrocardiogram [ECG] [EKG]; R74.01 Elevation of levels of liver transaminase levels
CPT/HCPCS: 99285; 36415; 93005; 93306; 93270; 93351; 85379; 80053 ×2; 84443; 83735; 84484; 85027 ×2; 81025; 80306; 80320; 71046; G0378 ×3